=== PATIENT | female | born 1990 | race Caucasian/White ===

== ENCOUNTER 2016-10-10 15:22 | Emergency (ER) | payer OTHER ==
[2016-10-10 16:04] VITALS: BP 110/65; PULSE 85; RESP 18; TEMP 97.9
--- NOTE | 2016-10-10 16:30 | ED ---
Lower Extremity Injury HPI - General Chief Complaint: Extremity Injury, Lower Stated Complaint: Leg Injury/Pain Time Seen by Provider: 10/10/16 16:07 Source: patient, RN notes reviewed Mode of arrival: ambulatory Limitations: no limitations - History of Present Illness Initial Comments: Patient is a 26-year-old female presenting to the with chief complaint of right knee pain. Patient reports that she fell on Sunday and twisted her knee. Patient reports that earlier today she slipped on the ice and reinjured her knee. Patient states that she feels a popping sensation. She states it's difficult to ambulate he feels that her knee is going to give out. She denies any peripheral paresthesias. She states that he had mild swelling over her knee. Has not taken anything for pain. Patient reports that she could possibly be last menstrual period was August 19. Patient denies any recent fever, chills, shortness of breath, chest pain, back pain, abdominal pain , nausea vomiting, numbness or tingling, dysuria or hematuria, constipation or diarrhea, headaches or visual changes, or any other current symptoms - Related Data Previous Rx's Medication Instructions Recorded Naproxen 500 mg PO Q12HR #20 tab 10/10/16 Allergies Allergy/AdvReac Type Severity Reaction Status Date / Time No Known Allergies Allergy Verified 10/10/16 16:03 Review of Systems ROS Statement: Those systems with pertinent positive or pertinent negative responses have been documented in the HPI. ROS Other: All systems not noted in ROS Statement are negative. Past Medical History Past Medical History: No Reported History History of Any Multi-Drug Resistant Organisms: None Reported Additional Past Surgical History / Comment(s): hernia surgery x 2 Past Psychological History: Anxiety, Depression Smoking Status: Current some day smoker Past Alcohol Use History: None Reported Past Drug Use History: Marijuana General Exam - General Exam Comments Initial Comments: Patient is a pleasant 18-year-old female. She is on appear to be in any acute distress. Limitations: no limitations General appearance: alert, in no apparent distress Head exam: Present: atraumatic, normocephalic, normal inspection Eye exam: Present: normal appearance, PERRL, EOMI. Absent: scleral icterus, conjunctival injection, periorbital swelling ENT exam: Present: normal exam, mucous membranes moist Neck exam: Present: normal inspection Respiratory exam: Present: normal lung sounds bilaterally. Absent: respiratory distress, wheezes, rales, rhonchi, stridor Cardiovascular Exam: Present: regular rate, normal rhythm, normal heart sounds. Absent: systolic murmur, diastolic murmur, rubs, gallop, clicks GI/Abdominal exam: Present: soft, normal bowel sounds. Absent: distended, tenderness, guarding, rebound, rigid Extremities exam: Present: normal inspection, full ROM, normal capillary refill. Absent: tenderness, pedal edema, joint swelling, calf tenderness Left Upper Leg exam: Present: normal inspection, full ROM Knee exam: Present: normal inspection, full ROM Lower Leg exam: Present: normal inspection, full ROM Ankle exam: Present: normal inspection, full ROM Foot/Toe exam: Present: normal inspection, full ROM Back exam: Present: normal inspection Neurological exam: Present: alert, oriented X3, CN II-XII intact Psychiatric exam: Present: normal affect, normal mood Skin exam: Present: warm, dry, intact, normal color. Absent: rash Course Vital Signs 10/10/16 16:00 Temperature 97.9 F Pulse Rate 85 Respiratory 18 Rate Blood Pressure 110/65 O2 Sat by Pulse 99 Oximetry Medical Decision Making - Medical Decision Making Patient is a 26-year-old female presenting to the with chief complaint of right knee pain after twisting it twice within the past few days. Patient states the pain is more in the lateral aspect of her knee. Patient is able to ambulate. Patient has not taken any for pain. Patient will be given a referral for orthopedics x-ray was reviewed to be negative. There is a possibility of having a lateral collateral ligament tear or also meniscal tear. Patient has been instructed to follow-up with orthopedic as is possible. Patient understands treatment plan will comply. - Lab Data Lab Results 10/10/16 Range/Units 16:12 Urine HCG, Qual Not Detected (Not Detectd) - Radiology Data Radiology results: report reviewed 6 area of the knee was reviewed and is negative for any acute fracture. Disposition Clinical Impression: Knee LCL sprain Disposition: HOME SELF-CARE Condition: Good Instructions: Knee Pain (ED), Knee Sprain (ED) Additional Instructions: Patient instructed to rest, ice, elevate extremity. Patient started to wear Rayray wrap at all times except for sleeping. Ambulate with crutches. Follow-up with orthopedic physician in 1-2 days. Return to the if any alarming signs or symptoms occur. Prescriptions: Naproxen 500 mg PO Q12HR #20 tab Referrals: Christian Reyes MD [STAFF PHYSICIAN] - 1-2 days Time of Disposition: 17:02
--- NOTE | 2016-10-10 16:35 | XR ---
EXAMINATION TYPE: XR knee complete RT DATE OF EXAM: 10/10/2016 4:31 PM COMPARISON: NONE HISTORY: Right knee pain following twisting injury TECHNIQUE: 3 view right knee FINDINGS: Joint space is preserved. No joint effusion is evident. No acute fractures are evident. IMPRESSION: 1. Normal right knee
== END 2016-10-10 17:32 | disposition home or self-care (01) ==
LOC: EC 15:22
DX: S83.421A Sprain of lateral collateral ligament of right knee, initial encounter (principal); F17.200 Nicotine dependence, unspecified, uncomplicated; W00.0XXA Fall on same level due to ice and snow, initial encounter
CPT/HCPCS: 81025; 99283